=== PATIENT | male | born 1960 | race African-American/Black ===

== ENCOUNTER → 2017-09-13 | Outpatient (CLI) | payer MEDICARE, MEDICAID | END | disposition home or self-care (01) | LOC: RAD 16:12 | PROVIDERS: ATTEND Nurse Practitioner Family | DX: Z01.818 Encounter for other preprocedural examination (principal); R07.9 Chest pain, unspecified | CPT/HCPCS: 71045 ==

== ENCOUNTER 2018-05-31 05:43 | Inpatient (IN) | payer MEDICARE, MEDICAID ==
[~2018-05-31] VITALS: Ht 182.9 cm; Wt 88.5 kg
[2018-05-31] MEDS ORDERED: LACTATED RINGERS 1,000 ML IV SCH (06:45)
[2018-05-31 06:53] LABS: CLARITY URINE CLEAR (CLEAR); COLOR URINE YELLOW (YELLOW); KETONES URINE NEGATIVE (NEGATIVE); LEUKOCYTE ESTERASE URINE NEGATIVE (NEGATIVE); NITRITE URINE NEGATIVE (NEGATIVE); OCCULT BLOOD URINE NEGATIVE (NEGATIVE); PH URINE 5.5 (4.5-8.0); PROTEIN URINE NEGATIVE (NEGATIVE); SPECIFIC GRAVITY URINE 1.023 (1.005-1.030); UROBILINOGEN URINE 0.2 E.U./dL (0.2-1.0)
[2018-05-31 06:53] LABS: BASOPHILS % 0.6 % (0.0-2.0); EOSINOPHILS % 1.9 % (0.0-5.0); HEMATOCRIT. 34.6 % (42.0-52.0); HEMOGLOBIN. 11.4 g/dL (14.0-18.0); LYMPHOCYTES % 32.9 % (20.0-50.0); MEAN CORPUSCULAR HEMOGLOBIN 29.2 pg (28.0-32.0); MEAN CORPUSCULAR VOLUME 88.2 fL (80.0-94.0); MEAN PLATELET VOLUME 7.4 fl (7.4-10.4); MONOCYTES % 6.9 % (2.0-8.0); NEUTROPHILS % 57.7 % (40.0-76.0); PLATELET 154 x1000/uL (130-400); RED BLOOD CELL COUNT 3.92 mill/uL (4.7-6.1); RED CELL DISTRIBUTION WIDTH 14.7 % (11.6-14.6)
[2018-05-31 06:59] LABS: CHLORIDE 110 mEq/L (98-107)
[2018-05-31] MEDS ORDERED: BUPIVACAINE HCL 0.5% (5MG/ML) 50ML ONE (06:59)
[2018-05-31] MEDS ORDERED: BACITRACIN 50,000 UNITS/VIAL ONE ×2 (06:59→07:52)
[2018-05-31 07:11] LABS: PARTIAL THROMBOPLASTIN TIME 27.5 sec (23.4-31.0); PROTHROMBIN TIME 10.5 sec (9.1-11.1)
[2018-05-31] MEDS ORDERED: VANCOMYCIN HCL 500 MG/VIAL ONE (09:08)
[2018-05-31] MEDS ORDERED: BUPIVACAINE HCL/EPINEPHRINE 0.5%/0.0005 30ML ONE (09:45)
[2018-05-31] MEDS ORDERED: FENTANYL CITRATE/PF 50MCG/ML 2ML VIAL IV PRN (10:00)
[2018-05-31] MEDS ORDERED: MEPERIDINE HCL/PF 25MG/ML CPJ IV PRN (10:00)
[2018-05-31] MEDS ORDERED: HYDROMORPHONE HCL/PF 2MG/ML CPJ IV PRN ×2 (10:00→10:30)
[2018-05-31] MEDS ORDERED: ONDANSETRON HCL 4MG/2ML INJ IV PRN ×2 (10:00→12:30)
[2018-05-31] MEDS ORDERED: MORPHINE SULFATE 4 MG/ML CPJ (NOT FOR IM USE) IV PRN (10:00)
[2018-05-31] MEDS ORDERED: ZOLPIDEM TARTRATE 5MG TABLET PO PRN (10:30)
[2018-05-31] MEDS ORDERED: ACETAMINOPHEN 325MG TABLET PO PRN (10:30)
[2018-05-31] MEDS ORDERED: MAGNESIUM HYDROXIDE 400MG/5ML 30ML UDC PO PRN (10:30)
[2018-05-31] MEDS ORDERED: HYDROCODONE/ACETAMINOPHEN 10/325MG TABLET PO PRN (10:30)
[2018-05-31 12:10] VITALS: BP 135/89
[2018-05-31] MEDS: HYDROMORPHONE HCL/PF 2MG/ML CPJ IV PRN ×2 (12:41→18:54)
[2018-05-31] MEDS: ASPIRIN 325MG EC TABLET PO SCH (13:28)
[2018-05-31] MEDS: PIPERACILLIN/TAZ 3.375G PREMIX 50 ML IV SCH ×2 (14:28→21:59)
[2018-05-31] MEDS: VANCOMYCIN 1,500 MG in DEXT 5% WATER 250 ML IV SCH (15:51)
[2018-05-31] MEDS: DOCUSATE SODIUM 100MG CAPSULE PO SCH (16:24)
[2018-05-31] MEDS: ONDANSETRON HCL 4MG/2ML INJ IV PRN (19:30)
[2018-05-31 20:00] VITALS: BP 167/85
[2018-05-31] MEDS: HYDROCODONE/ACETAMINOPHEN 10/325MG TABLET PO PRN (23:15)
[2018-06-01] VITALS: BP 138/76
[2018-06-01] MEDS: ONDANSETRON HCL 4MG/2ML INJ IV PRN ×2 (01:34→17:38)
[2018-06-01] MEDS: HYDROMORPHONE HCL/PF 2MG/ML CPJ IV PRN ×4 (01:41→21:26)
[2018-06-01] MEDS: PIPERACILLIN/TAZ 3.375G PREMIX 50 ML IV SCH ×4 (03:04→17:38)
[2018-06-01] MEDS: VANCOMYCIN 1,500 MG in DEXT 5% WATER 250 ML IV SCH (03:57)
[2018-06-01 06:32] VITALS: BP 135/68
[2018-06-01] MEDS: HYDROCODONE/ACETAMINOPHEN 10/325MG TABLET PO PRN ×2 (06:32→13:15)
[2018-06-01 08:00] VITALS: BP 121/85
[2018-06-01] MEDS: DOCUSATE SODIUM 100MG CAPSULE PO SCH ×2 (08:19→16:31)
[2018-06-01] MEDS: ASPIRIN 325MG EC TABLET PO SCH (08:19)
[2018-06-01] MEDS ORDERED: *ZOSYN XX SCH (10:00)
[2018-06-01 12:00] VITALS: BP 142/93
[2018-06-01 16:00] VITALS: BP 121/91
[2018-06-01] MEDS: VANCOMYCIN 1250MG in DEXTROSE 5% WATER 250ML IV SCH (16:24)
[2018-06-01 20:00] VITALS: BP 162/85
[2018-06-02] VITALS: BP 143/71
[2018-06-02] MEDS: PIPERACILLIN/TAZ 3.375G PREMIX 50 ML IV SCH ×5 (01:15→23:19)
[2018-06-02] MEDS: ONDANSETRON HCL 4MG/2ML INJ IV PRN ×2 (03:36→23:49)
[2018-06-02] MEDS: VANCOMYCIN 1250MG in DEXTROSE 5% WATER 250ML IV SCH ×2 (03:36→17:15)
[2018-06-02] MEDS: HYDROMORPHONE HCL/PF 2MG/ML CPJ IV PRN ×4 (03:37→21:05)
[2018-06-02 04:00] VITALS: BP 124/74
[2018-06-02 07:45] LABS: CHLORIDE 104 mEq/L (98-107)
[2018-06-02 07:59] VITALS: BP 143/85
[2018-06-02] MEDS: DOCUSATE SODIUM 100MG CAPSULE PO SCH ×2 (08:18→17:07)
[2018-06-02] MEDS: ASPIRIN 325MG EC TABLET PO SCH (08:18)
[2018-06-02 12:00] VITALS: BP 154/93
[2018-06-02] MEDS: HYDROCODONE/ACETAMINOPHEN 10/325MG TABLET PO PRN (12:28)
[2018-06-02] MEDS ORDERED: KETOROLAC 30MG/ML VIAL IV PRN (13:30)
[2018-06-02 16:00] VITALS: BP 156/98
[2018-06-02 20:00] VITALS: BP 135/78
[2018-06-02] MEDS: VANCOMYCIN 1 G PREMIX 200 ML IV SCH (23:18)
[2018-06-03] VITALS: BP 143/73
[2018-06-03] MEDS: HYDROCODONE/ACETAMINOPHEN 10/325MG TABLET PO PRN (01:01)
[2018-06-03 04:00] VITALS: BP 124/76
[2018-06-03] MEDS: VANCOMYCIN 1 G PREMIX 200 ML IV SCH (06:35)
[2018-06-03] MEDS: PIPERACILLIN/TAZ 3.375G PREMIX 50 ML IV SCH (06:35)
[2018-06-03 08:00] VITALS: BP 128/82
[2018-06-03] MEDS: DOCUSATE SODIUM 100MG CAPSULE PO SCH (08:29)
[2018-06-03 10:12] VITALS: BP 123/87
[2018-06-03 12:00] VITALS: BP 121/88
[2018-06-03] MEDS ORDERED: CEPHALEXIN 250 MG/5 ML 100ML PO SCH (12:00)
[2018-06-03] MEDS ORDERED: CEPHALEXIN 250MG CAPSULE PO SCH (12:00)
== END 2018-06-03 12:23 | disposition home or self-care (01) | DRG 512 ==
LOC: OR 05:43 → 6EST 05:44
PROVIDERS: ADMIT Orthopaedic Surgery; ATTEND Orthopaedic Surgery
PROC: 0M933ZZ Drainage of Right Elbow Bursa and Ligament, Percutaneous Approach (ICD-10-PCS; 2018-05-31)
PROC: 0PBK0ZZ Excision of Right Ulna, Open Approach (ICD-10-PCS; principal; 2018-05-31 07:30)
DX: M70.21 Olecranon bursitis, right elbow (principal); M89.9 Disorder of bone, unspecified; M77.9 Enthesopathy, unspecified
CPT/HCPCS: 36415; 71045; 80048; 80202; 87070; 87075; 88304; 89060; 93005; 97166; J0171; J1170; J1885; J2270; J2405; J2543; J3370; J3490; J7060